=== PATIENT | male | born 1955 | race Caucasian/White ===

== ENCOUNTER 2021-07-11 10:53 | Inpatient (IN) | payer MEDICARE, OTHER ==
[2021-07-11 12:03] LABS: #Lymphocytes 0.6 thou/uL (1.20-3.40); #Monocytes 0.2 thou/uL (0.11-0.59); #Neutrophils 5.3 thou/uL (1.40-6.50); %Eosinophils 0.1 % (0.0-10.0); %Lymphocytes 9.2 % (21.0-51.0); %Neutrophils 87.6 % (42.0-75.0); Hemoglobin 12.3 g/dL (14.0-18.0); Mean Corpuscular HGB CONC 33.7 g/dL (32.0-36.0); Mean Corpuscular Hemoglobin 30.3 pg (27.0-31.0); Mean Corpuscular Volume 89.8 fL (78.0-98.0); Mean Platelet Volume 8.4 fL (7.4-10.4); Platelet Count 129 thou/uL (130-400); RBC Distribution Width 12.8 % (11.5-14.5); Red Blood Cell (RBC) Count 4.06 mill/uL (4.70-6.10)
[2021-07-11 12:24] LABS: ALT (SGPT) 26 U/L (8-55); AST (SGOT) 40 U/L (5-34); Albumin 3.3 g/dL (3.4-4.8); Alkaline Phosphatase 87 U/L (40-110); Anion Gap 16 mmol/L (10-20); BUN (Urea Nitrogen) 42 mg/dL (8.4-25.7); Calc. Creatinine Clearance 0 mL/min (70-130); Calcium 8.3 mg/dL (7.8-10.44); Carbon Dioxide 18 mmol/L (23-31); Chloride 105 mmol/L (98-107); Globulin 2.1 g/dL (2.4-3.5); Glucose 179 mg/dL (80-115); Potassium 4.8 mmol/L (3.5-5.1); Protein, Total 5.4 g/dL (5.8-8.1); Sodium 134 mmol/L (136-145)
[2021-07-11 12:46] LABS: CKMB 0.4 ng/mL (0-6.6)
[2021-07-11] MEDS ORDERED: Acetaminophen 500 MG TAB ONE (18:21)
[2021-07-11 19:27] LABS: Anion Gap 12 mmol/L (10-20); BUN (Urea Nitrogen) 39 mg/dL (8.4-25.7); Calc. Creatinine Clearance 0 mL/min (70-130); Calcium 8.2 mg/dL (7.8-10.44); Carbon Dioxide 17 mmol/L (23-31); Chloride 109 mmol/L (98-107); Glucose 156 mg/dL (80-115); Potassium 4.4 mmol/L (3.5-5.1); Sodium 134 mmol/L (136-145)
[2021-07-11 19:34] LABS: Troponin I 0.062 ng/mL (< 0.028)
[2021-07-12 09:14] LABS: #Lymphocytes 0.5 thou/uL (1.20-3.40); #Monocytes 0.2 thou/uL (0.11-0.59); #Neutrophils 6.1 thou/uL (1.40-6.50); %Eosinophils 0.1 % (0.0-10.0); %Lymphocytes 7.8 % (21.0-51.0); %Monocytes 2.4 % (0.0-10.0); %Neutrophils 89.6 % (42.0-75.0); Mean Corpuscular HGB CONC 32.3 g/dL (32.0-36.0); Mean Corpuscular Hemoglobin 29.2 pg (27.0-31.0); Mean Corpuscular Volume 90.2 fL (78.0-98.0); Mean Platelet Volume 8.6 fL (7.4-10.4); Platelet Count 138 thou/uL (130-400); Red Blood Cell (RBC) Count 4.12 mill/uL (4.70-6.10); White Blood Cell (WBC) Count 6.8 thou/uL (4.8-10.8)
[2021-07-12 09:31] LABS: ALT (SGPT) 21 U/L (8-55); AST (SGOT) 44 U/L (5-34); Albumin 2.9 g/dL (3.4-4.8); Alkaline Phosphatase 73 U/L (40-110); Anion Gap 12 mmol/L (10-20); BUN (Urea Nitrogen) 41 mg/dL (8.4-25.7); Bilirubin, Total 0.9 mg/dL (0.2-1.2); Calc. Creatinine Clearance 0 mL/min (70-130); Calcium 8.4 mg/dL (7.8-10.44); Carbon Dioxide 16 mmol/L (23-31); Chloride 110 mmol/L (98-107); Globulin 2.6 g/dL (2.4-3.5); Glucose 112 mg/dL (80-115); Potassium 4.2 mmol/L (3.5-5.1); Protein, Total 5.5 g/dL (5.8-8.1); Sodium 134 mmol/L (136-145)
[2021-07-12 09:33] LABS: Troponin I 0.046 ng/mL (< 0.028)
[2021-07-12] MEDS ORDERED: Loperamide HCl 2 MG CAP ONE (09:52)
[2021-07-12] MEDS ORDERED: Ondansetron PF 4 MG/2 ML Vial IVP PRN (10:46)
[2021-07-12] MEDS ORDERED: Bisacodyl 10 MG SUPP PR PRN (10:46)
[2021-07-12] MEDS ORDERED: Guaifenesin DM 100-10/5 ML UDCUP PO PRN (10:46)
[2021-07-12] MEDS ORDERED: Calcium Carbonate 500 MG ChewTAB PO PRN (10:46)
[2021-07-12 10:59] LABS: SARS-CoV-2 NAA Rapid Test DETECTED (NotDetected)
[2021-07-12] MEDS ORDERED: Albuterol 200 PUFF (6.7GM INHALER) INH PRN (12:59)
[2021-07-12] MEDS ORDERED: methylPREDNISolone Sod Succ 40 MG VIAL ONE (14:43)
[2021-07-12] MEDS ORDERED: Cefepime 1 GM VIAL ONE (14:43)
[2021-07-12] MEDS: methylPREDNISolone Sod Succ 40 MG VIAL IVP SCH ×2 (14:49→20:24)
[2021-07-12] MEDS: Sodium Bicarbonate 150 MEQ in Dextrose 5% in Water 1,000 ML IV SCH ×2 (14:52→20:26)
[2021-07-12] MEDS: Cefepime 1 GM in Sodium Chloride 0.9% 100 ML IVPB SCH (14:52)
[2021-07-12] MEDS: Carvedilol 6.25 MG TAB PO SCH (17:35)
[2021-07-12] MEDS: Calcium Acetate 667 MG CAP PO SCH (17:36)
[2021-07-12 17:47] LABS: Creatinine, Urine 76.69 mg/dL (63-166)
[2021-07-12] MEDS: Atorvastatin Calcium 20 MG TAB PO SCH (20:24)
[2021-07-12] MEDS: Tacrolimus 1 MG CAP PO SCH (20:24)
[2021-07-13] MEDS: Sodium Bicarbonate 150 MEQ in Dextrose 5% in Water 1,000 ML IV SCH ×2 (02:38→14:41)
[2021-07-13] MEDS ORDERED: hydrALAZINE 20 MG/ML VIAL SLOW IVP SCH (03:45)
[2021-07-13 05:45] LABS: #Lymphocytes 0.4 thou/uL (1.20-3.40); #Monocytes 0.2 thou/uL (0.11-0.59); #Neutrophils 4.8 thou/uL (1.40-6.50); %Eosinophils 0.1 % (0.0-10.0); %Monocytes 3.8 % (0.0-10.0); %Neutrophils 88.1 % (42.0-75.0); Hemoglobin 11.8 g/dL (14.0-18.0); Mean Corpuscular Hemoglobin 30.1 pg (27.0-31.0); Mean Corpuscular Volume 88.6 fL (78.0-98.0); Mean Platelet Volume 8.5 fL (7.4-10.4); Platelet Count 156 thou/uL (130-400); RBC Distribution Width 12.7 % (11.5-14.5); Red Blood Cell (RBC) Count 3.92 mill/uL (4.70-6.10); White Blood Cell (WBC) Count 5.4 thou/uL (4.8-10.8)
[2021-07-13] MEDS: methylPREDNISolone Sod Succ 40 MG VIAL IVP SCH ×2 (05:57→13:18)
[2021-07-13 06:00] LABS: Albumin 2.7 g/dL (3.4-4.8); Anion Gap 17 mmol/L (10-20); BUN (Urea Nitrogen) 45 mg/dL (8.4-25.7); BUN/Creatinine Ratio 20.64; Calc. Creatinine Clearance 37 mL/min (70-130); Calcium 8.1 mg/dL (7.8-10.44); Carbon Dioxide 16 mmol/L (23-31); Chloride 105 mmol/L (98-107); Glucose 234 mg/dL (80-115); Magnesium 1.4 mg/dL (1.6-2.6); Phosphorus 2.9 mg/dL (2.3-4.7); Potassium 3.9 mmol/L (3.5-5.1); Sodium 134 mmol/L (136-145)
[2021-07-13] MEDS: Tacrolimus 1 MG CAP PO SCH ×2 (09:18→19:52)
[2021-07-13] MEDS: Enoxaparin Sodium 30 MG/0.3 ML SYRINGE SC SCH (09:18)
[2021-07-13] MEDS: Amlodipine 10 MG TAB PO SCH (09:18)
[2021-07-13] MEDS: Ascorbic Acid 500 mg Chewable Tablet PO SCH (09:19)
[2021-07-13] MEDS: Calcium Acetate 667 MG CAP PO SCH ×3 (09:19→16:53)
[2021-07-13] MEDS: Carvedilol 6.25 MG TAB PO SCH ×2 (09:19→16:53)
[2021-07-13] MEDS: Aspirin Chewable 81 MG TAB PO SCH (09:20)
[2021-07-13] MEDS: Cefepime 1 GM in Sodium Chloride 0.9% 100 ML IVPB SCH (13:18)
[2021-07-13] MEDS: Atorvastatin Calcium 20 MG TAB PO SCH (19:52)
[2021-07-14] MEDS: Sodium Bicarbonate 150 MEQ in Dextrose 5% in Water 1,000 ML IV SCH (00:35)
[2021-07-14] MEDS: Calcium Acetate 667 MG CAP PO SCH ×2 (09:12→13:19)
[2021-07-14] MEDS: Carvedilol 6.25 MG TAB PO SCH ×2 (09:12→16:48)
[2021-07-14] MEDS: predniSONE 20 MG TAB PO SCH (09:12)
[2021-07-14] MEDS: Amlodipine 10 MG TAB PO SCH (09:13)
[2021-07-14] MEDS: Aspirin Chewable 81 MG TAB PO SCH (09:13)
[2021-07-14] MEDS: Ascorbic Acid 500 mg Chewable Tablet PO SCH (09:13)
[2021-07-14] MEDS: Tacrolimus 1 MG CAP PO SCH ×2 (09:13→20:19)
[2021-07-14] MEDS: Enoxaparin Sodium 30 MG/0.3 ML SYRINGE SC SCH (09:13)
[2021-07-14 11:39] LABS: #Lymphocytes 0.4 thou/uL (1.20-3.40); #Monocytes 0.5 thou/uL (0.11-0.59); %Basophils 0.1 % (0.0-1.0); %Eosinophils 0.1 % (0.0-10.0); %Lymphocytes 4.5 % (21.0-51.0); %Monocytes 5.1 % (0.0-10.0); %Neutrophils 90.3 % (42.0-75.0); Hemoglobin 13.1 g/dL (14.0-18.0); Mean Corpuscular Hemoglobin 29.3 pg (27.0-31.0); Mean Corpuscular Volume 88.8 fL (78.0-98.0); Mean Platelet Volume 8.2 fL (7.4-10.4); Platelet Count 211 thou/uL (130-400); RBC Distribution Width 12.7 % (11.5-14.5); Red Blood Cell (RBC) Count 4.48 mill/uL (4.70-6.10); White Blood Cell (WBC) Count 8.9 thou/uL (4.8-10.8)
[2021-07-14 11:57] LABS: Albumin 2.9 g/dL (3.4-4.8); Anion Gap 15 mmol/L (10-20); BUN (Urea Nitrogen) 48 mg/dL (8.4-25.7); BUN/Creatinine Ratio 23.65; Calc. Creatinine Clearance 40 mL/min (70-130); Calcium 8.7 mg/dL (7.8-10.44); Carbon Dioxide 26 mmol/L (23-31); Chloride 101 mmol/L (98-107); Glucose 316 mg/dL (80-115); Phosphorus 2.7 mg/dL (2.3-4.7); Potassium 3.9 mmol/L (3.5-5.1); Sodium 138 mmol/L (136-145)
[2021-07-14 11:58] LABS: Anion Gap 16 mmol/L (10-20); BUN (Urea Nitrogen) 47 mg/dL (8.4-25.7); Calc. Creatinine Clearance 40 mL/min (70-130); Calcium 8.7 mg/dL (7.8-10.44); Carbon Dioxide 25 mmol/L (23-31); Chloride 100 mmol/L (98-107); Glucose 315 mg/dL (80-115); Potassium 3.9 mmol/L (3.5-5.1); Sodium 137 mmol/L (136-145)
[2021-07-14] MEDS: Dextrose 5 %-0.45 % NaCl 1,000 ML IV SCH (12:38)
[2021-07-14] MEDS: Cefepime 1 GM in Sodium Chloride 0.9% 100 ML IVPB SCH (14:22)
[2021-07-14] MEDS: Atorvastatin Calcium 20 MG TAB PO SCH (20:19)
[2021-07-15] MEDS: Dextrose 5 %-0.45 % NaCl 1,000 ML IV SCH (01:47)
[2021-07-15 03:54] LABS: Actual Bicarbonate (HCO3a) 25.4 mEq/L (22-28); Base Excess (BEa) 3.4 mEq/L (-2.0 to +3.0); CO2 Tension 30.6 mmHg (35.0-45.0); Calcium, Ionized (arterial) 1.12 mmol/L (1.12-1.30); Carboxyhemoglobin (COHb) 0.5 gm% (0.0-3.0); Hemoglobin (Hb) 12.9 g/dL (14.0-18.0); pH, Arterial 7.54 (7.35-7.45)
[2021-07-15 04:16] LABS: O2 Tension (PaO2), arterial 54.3 mmHg (> 80.0)
[2021-07-15 04:17] LABS: Puncture Site RRA
[2021-07-15 05:08] LABS: #Lymphocytes 0.5 thou/uL (1.20-3.40); #Monocytes 0.3 thou/uL (0.11-0.59); #Neutrophils 7.5 thou/uL (1.40-6.50); %Eosinophils 0.2 % (0.0-10.0); %Lymphocytes 5.6 % (21.0-51.0); %Neutrophils 91.1 % (42.0-75.0); Mean Corpuscular HGB CONC 33.3 g/dL (32.0-36.0); Mean Corpuscular Hemoglobin 29.3 pg (27.0-31.0); Mean Corpuscular Volume 87.9 fL (78.0-98.0); Mean Platelet Volume 8.3 fL (7.4-10.4); Platelet Count 199 thou/uL (130-400); RBC Distribution Width 12.6 % (11.5-14.5); Red Blood Cell (RBC) Count 4.43 mill/uL (4.70-6.10); White Blood Cell (WBC) Count 8.2 thou/uL (4.8-10.8)
[2021-07-15 05:29] LABS: Anion Gap 14 mmol/L (10-20); BUN (Urea Nitrogen) 47 mg/dL (8.4-25.7); Calc. Creatinine Clearance 47 mL/min (70-130); Calcium 8.6 mg/dL (7.8-10.44); Carbon Dioxide 23 mmol/L (23-31); Chloride 104 mmol/L (98-107); Glucose 196 mg/dL (80-115); Sodium 137 mmol/L (136-145)
[2021-07-15] MEDS ORDERED: Furosemide 40 MG/4 ML VIAL SLOW IVP SCH (06:45)
[2021-07-15] MEDS: Amlodipine 10 MG TAB PO SCH ×2 (08:25→08:26)
[2021-07-15] MEDS: predniSONE 20 MG TAB PO SCH (08:25)
[2021-07-15] MEDS: Enoxaparin Sodium 30 MG/0.3 ML SYRINGE SC SCH (08:26)
[2021-07-15] MEDS: Tacrolimus 1 MG CAP PO SCH ×2 (08:26→20:42)
[2021-07-15] MEDS: Ascorbic Acid 500 mg Chewable Tablet PO SCH (08:26)
[2021-07-15] MEDS: Aspirin Chewable 81 MG TAB PO SCH (08:26)
[2021-07-15] MEDS: Carvedilol 6.25 MG TAB PO SCH ×2 (08:28→17:03)
[2021-07-15] MEDS ORDERED: predniSONE 20 MG TAB PO SCH (12:30)
[2021-07-15] MEDS: Acetaminophen 325 MG TAB PO PRN (17:02)
[2021-07-15] MEDS: Cefepime 1 GM in Sodium Chloride 0.9% 100 ML IVPB SCH (17:03)
[2021-07-15] MEDS: Mometasone 200 MCG/Formoterol 5 MCG 120 PUFF INHALER INH SCH (20:41)
[2021-07-15] MEDS: Atorvastatin Calcium 20 MG TAB PO SCH (20:42)
[2021-07-15] MEDS: BARICITINIB 2 MG TAB PO SCH (20:42)
[2021-07-16 04:07] LABS: #Lymphocytes 0.6 thou/uL (1.20-3.40); #Monocytes 0.1 thou/uL (0.11-0.59); #Neutrophils 6.5 thou/uL (1.40-6.50); %Eosinophils 0.2 % (0.0-10.0); %Lymphocytes 7.6 % (21.0-51.0); %Monocytes 1.6 % (0.0-10.0); %Neutrophils 90.6 % (42.0-75.0); Hemoglobin 12.3 g/dL (14.0-18.0); Mean Corpuscular HGB CONC 33.5 g/dL (32.0-36.0); Mean Corpuscular Hemoglobin 29.7 pg (27.0-31.0); Mean Corpuscular Volume 88.8 fL (78.0-98.0); Mean Platelet Volume 8.7 fL (7.4-10.4); Platelet Count 162 thou/uL (130-400); RBC Distribution Width 12.4 % (11.5-14.5); Red Blood Cell (RBC) Count 4.13 mill/uL (4.70-6.10); White Blood Cell (WBC) Count 7.2 thou/uL (4.8-10.8)
[2021-07-16 04:21] LABS: ALT (SGPT) 26 U/L (8-55); AST (SGOT) 27 U/L (5-34); Albumin 2.9 g/dL (3.4-4.8); Alkaline Phosphatase 89 U/L (40-110); Anion Gap 13 mmol/L (10-20); BUN (Urea Nitrogen) 50 mg/dL (8.4-25.7); Bilirubin, Direct 0.7 mg/dL (0.1-0.3); Bilirubin, Total 1.6 mg/dL (0.2-1.2); Calc. Creatinine Clearance 42 mL/min (70-130); Calcium 8.4 mg/dL (7.8-10.44); Carbon Dioxide 27 mmol/L (23-31); Chloride 102 mmol/L (98-107); Glucose 251 mg/dL (80-115); Magnesium 1.7 mg/dL (1.6-2.6); Protein, Total 5.8 g/dL (5.8-8.1); Sodium 138 mmol/L (136-145)
[2021-07-16] MEDS: Mometasone 200 MCG/Formoterol 5 MCG 120 PUFF INHALER INH SCH ×2 (05:57→17:51)
[2021-07-16] MEDS: Tacrolimus 1 MG CAP PO SCH ×2 (07:56→21:16)
[2021-07-16] MEDS: Amlodipine 10 MG TAB PO SCH (07:57)
[2021-07-16] MEDS: Carvedilol 6.25 MG TAB PO SCH ×2 (07:57→17:51)
[2021-07-16] MEDS: predniSONE 20 MG TAB PO SCH (07:57)
[2021-07-16] MEDS: Aspirin Chewable 81 MG TAB PO SCH (07:57)
[2021-07-16] MEDS: Ascorbic Acid 500 mg Chewable Tablet PO SCH (07:57)
[2021-07-16] MEDS: Enoxaparin Sodium 30 MG/0.3 ML SYRINGE SC SCH ×2 (07:58→21:17)
[2021-07-16] MEDS: Cefepime 2 GM in Sodium Chloride 0.9% 100 ML IVPB SCH ×2 (12:01→23:03)
[2021-07-16 20:12] LABS: Tacrolimus 17.9 ng/mL (2.0-20.0)
[2021-07-16] MEDS: BARICITINIB 2 MG TAB PO SCH (21:16)
[2021-07-16] MEDS: Atorvastatin Calcium 20 MG TAB PO SCH (21:17)
[2021-07-16] MEDS ORDERED: Sodium Chloride 0.65% Nasal 44 ML BOT EA NARE PRN (21:51)
[2021-07-17 04:47] LABS: Anion Gap 15 mmol/L (10-20); BUN (Urea Nitrogen) 54 mg/dL (8.4-25.7); Calc. Creatinine Clearance 38 mL/min (70-130); Calcium 8.4 mg/dL (7.8-10.44); Carbon Dioxide 20 mmol/L (23-31); Chloride 105 mmol/L (98-107); Glucose 539 mg/dL (80-115); Potassium 4.6 mmol/L (3.5-5.1); Sodium 135 mmol/L (136-145)
[2021-07-17] MEDS ORDERED: HumaLOG 300 UNITS/3 ML VIAL SC PRN (06:00)
[2021-07-17] MEDS ORDERED: Dextrose 5% in Water 1,000 ML IV PRN (06:00)
[2021-07-17] MEDS ORDERED: Dextrose 50% Abboject 50 ML SYRINGE SLOW IVP PRN (06:00)
[2021-07-17] MEDS: Mometasone 200 MCG/Formoterol 5 MCG 120 PUFF INHALER INH SCH ×2 (06:11→18:51)
[2021-07-17 06:26] LABS: Hemoglobin A1c 6.8 % (4.0-6.0)
[2021-07-17] MEDS ORDERED: Lantus 1000 UNITS/10 ML VIAL SC SCH (07:45)
[2021-07-17] MEDS: Carvedilol 6.25 MG TAB PO SCH ×2 (07:56→18:03)
[2021-07-17] MEDS: Tacrolimus 1 MG CAP PO SCH ×2 (07:56→22:15)
[2021-07-17] MEDS: predniSONE 20 MG TAB PO SCH (07:57)
[2021-07-17] MEDS: Ascorbic Acid 500 mg Chewable Tablet PO SCH (07:57)
[2021-07-17] MEDS: Amlodipine 10 MG TAB PO SCH (07:57)
[2021-07-17] MEDS: Aspirin Chewable 81 MG TAB PO SCH (07:57)
[2021-07-17] MEDS: Enoxaparin Sodium 30 MG/0.3 ML SYRINGE SC SCH ×2 (07:58→22:15)
[2021-07-17] MEDS: Cefepime 2 GM in Sodium Chloride 0.9% 100 ML IVPB SCH ×2 (11:39→23:16)
[2021-07-17] MEDS: HumaLOG 300 UNITS/3 ML VIAL SC PRN ×2 (18:03→22:17)
[2021-07-17] MEDS: Atorvastatin Calcium 20 MG TAB PO SCH (22:15)
[2021-07-17] MEDS: BARICITINIB 2 MG TAB PO SCH (22:15)
[2021-07-18] MEDS: Mometasone 200 MCG/Formoterol 5 MCG 120 PUFF INHALER INH SCH ×2 (06:12→17:52)
[2021-07-18] MEDS: HumaLOG 300 UNITS/3 ML VIAL SC PRN (06:13)
[2021-07-18] MEDS: Aspirin Chewable 81 MG TAB PO SCH (07:31)
[2021-07-18] MEDS: predniSONE 20 MG TAB PO SCH (07:31)
[2021-07-18] MEDS: Ascorbic Acid 500 mg Chewable Tablet PO SCH (07:31)
[2021-07-18] MEDS: Tacrolimus 1 MG CAP PO SCH ×2 (07:31→21:07)
[2021-07-18] MEDS: Amlodipine 10 MG TAB PO SCH (07:31)
[2021-07-18] MEDS: Enoxaparin Sodium 30 MG/0.3 ML SYRINGE SC SCH ×2 (07:32→21:07)
[2021-07-18] MEDS: Lantus 1000 UNITS/10 ML VIAL SC SCH (07:32)
[2021-07-18] MEDS: Carvedilol 6.25 MG TAB PO SCH ×2 (07:47→13:11)
[2021-07-18 08:49] LABS: #Eosinphils 0.2 thou/uL (0.0-0.7); #Lymphocytes 0.8 thou/uL (1.20-3.40); #Monocytes 0.2 thou/uL (0.11-0.59); #Neutrophils 10.2 thou/uL (1.40-6.50); %Basophils 0.1 % (0.0-1.0); %Eosinophils 1.6 % (0.0-10.0); %Lymphocytes 6.8 % (21.0-51.0); %Monocytes 1.9 % (0.0-10.0); %Neutrophils 89.7 % (42.0-75.0); Hemoglobin 13.6 g/dL (14.0-18.0); Mean Corpuscular HGB CONC 32.2 g/dL (32.0-36.0); Mean Corpuscular Volume 89.9 fL (78.0-98.0); Mean Platelet Volume 8.7 fL (7.4-10.4); Platelet Count 219 thou/uL (130-400); RBC Distribution Width 12.6 % (11.5-14.5); Red Blood Cell (RBC) Count 4.71 mill/uL (4.70-6.10); White Blood Cell (WBC) Count 11.4 thou/uL (4.8-10.8)
[2021-07-18 09:09] LABS: Anion Gap 14 mmol/L (10-20); BUN (Urea Nitrogen) 58 mg/dL (8.4-25.7); Calc. Creatinine Clearance 45 mL/min (70-130); Calcium 9.2 mg/dL (7.8-10.44); Carbon Dioxide 20 mmol/L (23-31); Chloride 110 mmol/L (98-107); Glucose 137 mg/dL (80-115); Sodium 140 mmol/L (136-145)
[2021-07-18] MEDS: Cefepime 2 GM in Sodium Chloride 0.9% 100 ML IVPB SCH ×2 (13:10→22:32)
[2021-07-18] MEDS: Atorvastatin Calcium 20 MG TAB PO SCH (21:07)
[2021-07-18] MEDS: BARICITINIB 2 MG TAB PO SCH (21:07)
[2021-07-18 22:31] LABS: #Eosinphils 0.2 thou/uL (0.0-0.7); #Lymphocytes 0.7 thou/uL (1.20-3.40); #Monocytes 0.2 thou/uL (0.11-0.59); #Neutrophils 11.6 thou/uL (1.40-6.50); %Eosinophils 1.8 % (0.0-10.0); %Lymphocytes 5.2 % (21.0-51.0); %Monocytes 1.8 % (0.0-10.0); %Neutrophils 91.2 % (42.0-75.0); Hemoglobin 14.1 g/dL (14.0-18.0); Mean Corpuscular HGB CONC 33.5 g/dL (32.0-36.0); Mean Corpuscular Hemoglobin 29.9 pg (27.0-31.0); Mean Corpuscular Volume 89.3 fL (78.0-98.0); Mean Platelet Volume 8.1 fL (7.4-10.4); Platelet Count 237 thou/uL (130-400); RBC Distribution Width 12.5 % (11.5-14.5); Red Blood Cell (RBC) Count 4.71 mill/uL (4.70-6.10); White Blood Cell (WBC) Count 12.7 thou/uL (4.8-10.8)
[2021-07-18 22:54] LABS: ALT (SGPT) 27 U/L (8-55); AST (SGOT) 31 U/L (5-34); Alkaline Phosphatase 98 U/L (40-110); Anion Gap 15 mmol/L (10-20); BUN (Urea Nitrogen) 51 mg/dL (8.4-25.7); Bilirubin, Total 1.5 mg/dL (0.2-1.2); Calc. Creatinine Clearance 50 mL/min (70-130); Carbon Dioxide 18 mmol/L (23-31); Chloride 109 mmol/L (98-107); Globulin 3.7 g/dL (2.4-3.5); Glucose 104 mg/dL (80-115); Potassium 4.6 mmol/L (3.5-5.1); Protein, Total 6.7 g/dL (5.8-8.1); Sodium 137 mmol/L (136-145)
[2021-07-18 23:14] LABS: Bacteria/HPF None Seen HPF (None Seen); Bilirubin Negative (Negative); Blood, Urine 3+ (Negative); Clarity Clear (Clear); Glucose, Urine (Dipstick) 300 mg/dL (Negative); Ketone, Urine Negative (Negative); Leukocyte Negative Leu/uL (Negative); Nitrite Negative (Negative); Protein, Urine (Dipstick) 100 mg/dL (Neg-Trace); RBC/HPF Greater than 50 HPF (0-3); Specific Gravity, Urine 1.023 (1.002-1.036); Squamous Epithelial None Seen HPF (0-3); Urobilinogen Normal mg/dL (Less than 2)
[2021-07-18 23:17] LABS: Urine Culture Reflex Yes Yes
[2021-07-19] MEDS: Acetaminophen 325 MG TAB PO PRN (06:00)
[2021-07-19] MEDS: Mometasone 200 MCG/Formoterol 5 MCG 120 PUFF INHALER INH SCH ×2 (06:01→16:59)
[2021-07-19 06:03] LABS: ALT (SGPT) 27 U/L (8-55); AST (SGOT) 26 U/L (5-34); Alkaline Phosphatase 89 U/L (40-110); Bilirubin, Direct 0.7 mg/dL (0.1-0.3); Bilirubin, Total 1.6 mg/dL (0.2-1.2); Protein, Total 6.5 g/dL (5.8-8.1)
[2021-07-19] MEDS: Ascorbic Acid 500 mg Chewable Tablet PO SCH (08:17)
[2021-07-19] MEDS: predniSONE 20 MG TAB PO SCH (08:17)
[2021-07-19] MEDS: Carvedilol 6.25 MG TAB PO SCH ×2 (08:17→16:59)
[2021-07-19] MEDS: Aspirin Chewable 81 MG TAB PO SCH (08:17)
[2021-07-19] MEDS: Tacrolimus 1 MG CAP PO SCH ×2 (08:18→19:56)
[2021-07-19] MEDS: Enoxaparin Sodium 30 MG/0.3 ML SYRINGE SC SCH ×2 (08:18→19:57)
[2021-07-19] MEDS: Lantus 1000 UNITS/10 ML VIAL SC SCH (11:43)
[2021-07-19] MEDS: Cefepime 2 GM in Sodium Chloride 0.9% 100 ML IVPB SCH ×2 (11:43→23:25)
[2021-07-19] MEDS: HumaLOG 300 UNITS/3 ML VIAL SC PRN ×2 (17:00→19:58)
[2021-07-19] MEDS ORDERED: hydrALAZINE 20 MG/ML VIAL SLOW IVP PRN (17:46)
[2021-07-19] MEDS: BARICITINIB 2 MG TAB PO SCH (19:57)
[2021-07-19] MEDS: Atorvastatin Calcium 20 MG TAB PO SCH (19:57)
[2021-07-20 00:02] LABS: SARS-CoV-2 PCR by NAA DETECTED (NotDetected)
[2021-07-20 05:07] LABS: #Eosinphils 0.1 thou/uL (0.0-0.7); #Lymphocytes 0.7 thou/uL (1.20-3.40); #Monocytes 0.2 thou/uL (0.11-0.59); #Neutrophils 6.3 thou/uL (1.40-6.50); %Basophils 0.1 % (0.0-1.0); %Eosinophils 1.2 % (0.0-10.0); %Lymphocytes 9.1 % (21.0-51.0); %Monocytes 3.1 % (0.0-10.0); %Neutrophils 86.7 % (42.0-75.0); Hemoglobin 13.1 g/dL (14.0-18.0); Mean Corpuscular HGB CONC 32.9 g/dL (32.0-36.0); Mean Corpuscular Hemoglobin 29.1 pg (27.0-31.0); Mean Corpuscular Volume 88.4 fL (78.0-98.0); Mean Platelet Volume 8.5 fL (7.4-10.4); Platelet Count 194 thou/uL (130-400); RBC Distribution Width 12.5 % (11.5-14.5); Red Blood Cell (RBC) Count 4.52 mill/uL (4.70-6.10); White Blood Cell (WBC) Count 7.2 thou/uL (4.8-10.8)
[2021-07-20 05:29] LABS: Anion Gap 12 mmol/L (10-20); BUN (Urea Nitrogen) 58 mg/dL (8.4-25.7); Calc. Creatinine Clearance 48 mL/min (70-130); Calcium 8.7 mg/dL (7.8-10.44); Carbon Dioxide 17 mmol/L (23-31); Chloride 115 mmol/L (98-107); Glucose 105 mg/dL (80-115); Potassium 4.5 mmol/L (3.5-5.1); Sodium 139 mmol/L (136-145)
[2021-07-20] MEDS: Mometasone 200 MCG/Formoterol 5 MCG 120 PUFF INHALER INH SCH ×2 (06:12→17:27)
[2021-07-20] MEDS: Enoxaparin Sodium 30 MG/0.3 ML SYRINGE SC SCH ×2 (08:11→21:10)
[2021-07-20] MEDS: Ascorbic Acid 500 mg Chewable Tablet PO SCH ×2 (08:11→08:12)
[2021-07-20] MEDS: predniSONE 20 MG TAB PO SCH (08:12)
[2021-07-20] MEDS: Aspirin Chewable 81 MG TAB PO SCH (08:12)
[2021-07-20] MEDS: Amlodipine 10 MG TAB PO SCH (08:12)
[2021-07-20] MEDS: Tacrolimus 1 MG CAP PO SCH ×2 (08:13→21:10)
[2021-07-20] MEDS: Lantus 1000 UNITS/10 ML VIAL SC SCH (12:16)
[2021-07-20] MEDS ORDERED: hydrOXYzine 25 MG TAB PO PRN (13:46)
[2021-07-20] MEDS ORDERED: Carvedilol 6.25 MG TAB PO SCH (17:00)
[2021-07-20] MEDS: HumaLOG 300 UNITS/3 ML VIAL SC PRN (17:27)
[2021-07-20] MEDS: BARICITINIB 2 MG TAB PO SCH (21:10)
[2021-07-20] MEDS: Atorvastatin Calcium 20 MG TAB PO SCH (21:10)
[2021-07-21 06:10] LABS: Anion Gap 15 mmol/L (10-20); BUN (Urea Nitrogen) 64 mg/dL (8.4-25.7); Calc. Creatinine Clearance 45 mL/min (70-130); Carbon Dioxide 15 mmol/L (23-31); Chloride 113 mmol/L (98-107); Glucose 123 mg/dL (80-115); Potassium 5.3 mmol/L (3.5-5.1); Sodium 138 mmol/L (136-145)
[2021-07-21] MEDS: Mometasone 200 MCG/Formoterol 5 MCG 120 PUFF INHALER INH SCH ×2 (06:19→17:53)
[2021-07-21] MEDS: Amlodipine 10 MG TAB PO SCH (07:44)
[2021-07-21] MEDS: Lantus 1000 UNITS/10 ML VIAL SC SCH (07:45)
[2021-07-21] MEDS: Aspirin Chewable 81 MG TAB PO SCH (07:45)
[2021-07-21] MEDS: Enoxaparin Sodium 30 MG/0.3 ML SYRINGE SC SCH ×2 (07:45→21:34)
[2021-07-21] MEDS: Tacrolimus 1 MG CAP PO SCH ×2 (07:45→21:34)
[2021-07-21] MEDS: Ascorbic Acid 500 mg Chewable Tablet PO SCH (07:47)
[2021-07-21] MEDS ORDERED: predniSONE 20 MG TAB PO SCH (08:00)
[2021-07-21 09:09] LABS: Anion Gap 13 mmol/L (10-20); BUN (Urea Nitrogen) 65 mg/dL (8.4-25.7); Calc. Creatinine Clearance 44 mL/min (70-130); Carbon Dioxide 17 mmol/L (23-31); Chloride 113 mmol/L (98-107); Glucose 129 mg/dL (80-115); Potassium 4.9 mmol/L (3.5-5.1); Sodium 138 mmol/L (136-145)
[2021-07-21 14:36] LABS: Tacrolimus 8.5 ng/mL (2.0-20.0)
[2021-07-21 16:16] LABS: Bilirubin Negative (Negative); Blood, Urine 3+ (Negative); Clarity Extra Turbid (Clear); Glucose, Urine (Dipstick) 500 mg/dL (Negative); Ketone, Urine Negative (Negative); Leukocyte Negative Leu/uL (Negative); Nitrite Negative (Negative); Protein, Urine (Dipstick) 70 mg/dL (Neg-Trace); RBC/HPF Greater than 50 HPF (0-3); Specific Gravity, Urine 1.025 (1.002-1.036); Squamous Epithelial None Seen HPF (0-3); Urobilinogen Normal mg/dL (Less than 2); pH, Urine 5.5 (5.0-9.0)
[2021-07-21 16:30] LABS: Bacteria/HPF 1+ HPF (None Seen); WBC/HPF 0-3 HPF (0-3)
[2021-07-21 16:31] LABS: Urine Culture Reflex Yes Yes
[2021-07-21] MEDS: HumaLOG 300 UNITS/3 ML VIAL SC PRN ×2 (17:55→21:35)
[2021-07-21] MEDS: Atorvastatin Calcium 20 MG TAB PO SCH (21:34)
[2021-07-21] MEDS: BARICITINIB 2 MG TAB PO SCH (21:34)
[2021-07-22 04:30] LABS: Anion Gap 11 mmol/L (10-20); BUN (Urea Nitrogen) 66 mg/dL (8.4-25.7); Calc. Creatinine Clearance 44 mL/min (70-130); Carbon Dioxide 18 mmol/L (23-31); Chloride 115 mmol/L (98-107); Glucose 79 mg/dL (80-115); Phosphorus 2.7 mg/dL (2.3-4.7); Potassium 4.9 mmol/L (3.5-5.1); Sodium 139 mmol/L (136-145)
[2021-07-22] MEDS: Mometasone 200 MCG/Formoterol 5 MCG 120 PUFF INHALER INH SCH ×2 (05:58→18:44)
[2021-07-22] MEDS ORDERED: predniSONE 20 MG TAB PO SCH (08:00)
[2021-07-22 08:26] LABS: ALT (SGPT) 28 U/L (8-55); AST (SGOT) 27 U/L (5-34); Albumin 3.1 g/dL (3.4-4.8); Alkaline Phosphatase 61 U/L (40-110); Bilirubin, Direct 0.4 mg/dL (0.1-0.3); Bilirubin, Total 1.1 mg/dL (0.2-1.2); Protein, Total 6.6 g/dL (5.8-8.1)
[2021-07-22 09:26] LABS: Hemoglobin 14.1 g/dL (14.0-18.0); Mean Corpuscular HGB CONC 32.5 g/dL (32.0-36.0); Mean Corpuscular Hemoglobin 29.8 pg (27.0-31.0); Mean Corpuscular Volume 91.7 fL (78.0-98.0); Mean Platelet Volume 8.3 fL (7.4-10.4); Platelet Count 215 thou/uL (130-400); RBC Distribution Width 12.6 % (11.5-14.5); Red Blood Cell (RBC) Count 4.74 mill/uL (4.70-6.10); White Blood Cell (WBC) Count 10.3 thou/uL (4.8-10.8)
[2021-07-22 09:38] LABS: INR-International Normal Ratio 1.2; Prothrombin Time 15.2 sec (12.0-14.7)
[2021-07-22 09:39] LABS: PTT 58.2 sec (22.9-36.1)
[2021-07-22 09:40] LABS: D-Dimer Test 2.56 *mcg/mL (0.27-0.43)
[2021-07-22 09:54] LABS: ALT (SGPT) 28 U/L (8-55); AST (SGOT) 30 U/L (5-34); Albumin 3.2 g/dL (3.4-4.8); Alkaline Phosphatase 75 U/L (40-110); Anion Gap 14 mmol/L (10-20); BUN (Urea Nitrogen) 65 mg/dL (8.4-25.7); Bilirubin, Total 1.1 mg/dL (0.2-1.2); Calc. Creatinine Clearance 44 mL/min (70-130); Calcium 9.2 mg/dL (7.8-10.44); Carbon Dioxide 14 mmol/L (23-31); Chloride 116 mmol/L (98-107); Globulin 3.4 g/dL (2.4-3.5); Glucose 98 mg/dL (80-115); Phosphorus 2.8 mg/dL (2.3-4.7); Potassium 5.3 mmol/L (3.5-5.1); Protein, Total 6.6 g/dL (5.8-8.1); Sodium 139 mmol/L (136-145)
[2021-07-22] MEDS: Tacrolimus 1 MG CAP PO SCH ×2 (10:46→20:20)
[2021-07-22] MEDS: Pantoprazole 40 MG VIAL IVP SCH ×2 (10:46→20:20)
[2021-07-22] MEDS: Ascorbic Acid 500 mg Chewable Tablet PO SCH (11:59)
[2021-07-22] MEDS: Lantus 1000 UNITS/10 ML VIAL SC SCH (11:59)
[2021-07-22] MEDS ORDERED: Polyethylene Glycol 3350 17 GM Packet PO SCH (13:30)
[2021-07-22 13:39] LABS: Anion Gap 19 mmol/L (10-20); BUN (Urea Nitrogen) 63 mg/dL (8.4-25.7); Calc. Creatinine Clearance 45 mL/min (70-130); Calcium 9.2 mg/dL (7.8-10.44); Carbon Dioxide 11 mmol/L (23-31); Chloride 115 mmol/L (98-107); Glucose 68 mg/dL (80-115); Potassium 5.5 mmol/L (3.5-5.1); Sodium 139 mmol/L (136-145)
[2021-07-22] MEDS: Mycophenolate ER 180 MG TAB PO SCH (15:09)
[2021-07-22 17:15] LABS: Hemoglobin 13.6 g/dL (14.0-18.0)
[2021-07-22 17:49] LABS: Anion Gap 14 mmol/L (10-20); BUN (Urea Nitrogen) 60 mg/dL (8.4-25.7); Calc. Creatinine Clearance 43 mL/min (70-130); Calcium 9.4 mg/dL (7.8-10.44); Carbon Dioxide 13 mmol/L (23-31); Chloride 116 mmol/L (98-107); Glucose 159 mg/dL (80-115); Potassium 5.1 mmol/L (3.5-5.1); Sodium 138 mmol/L (136-145)
[2021-07-22] MEDS: Sodium Bicarbonate Tab 325 MG TAB PO SCH (20:20)
[2021-07-22] MEDS: Atorvastatin Calcium 20 MG TAB PO SCH (20:20)
[2021-07-22] MEDS: Polyethylene Glycol 3350 17 GM Packet PO SCH (20:20)
[2021-07-22 23:02] LABS: Hemoglobin 13.9 g/dL (14.0-18.0)
[2021-07-22 23:21] LABS: Anion Gap 16 mmol/L (10-20); BUN (Urea Nitrogen) 58 mg/dL (8.4-25.7); Calc. Creatinine Clearance 44 mL/min (70-130); Carbon Dioxide 14 mmol/L (23-31); Chloride 117 mmol/L (98-107); Glucose 135 mg/dL (80-115); Potassium 4.7 mmol/L (3.5-5.1); Sodium 142 mmol/L (136-145)
[2021-07-23 05:18] LABS: Anion Gap 14 mmol/L (10-20); BUN (Urea Nitrogen) 55 mg/dL (8.4-25.7); Calc. Creatinine Clearance 46 mL/min (70-130); Calcium 8.7 mg/dL (7.8-10.44); Carbon Dioxide 16 mmol/L (23-31); Chloride 113 mmol/L (98-107); Glucose 109 mg/dL (80-115); Magnesium 1.8 mg/dL (1.6-2.6); Phosphorus 2.9 mg/dL (2.3-4.7); Potassium 4.3 mmol/L (3.5-5.1); Sodium 139 mmol/L (136-145)
[2021-07-23] MEDS: Mometasone 200 MCG/Formoterol 5 MCG 120 PUFF INHALER INH SCH ×2 (05:47→17:26)
[2021-07-23] MEDS: Sodium Bicarbonate Tab 325 MG TAB PO SCH ×3 (08:06→20:25)
[2021-07-23] MEDS: Tacrolimus 1 MG CAP PO SCH ×2 (08:06→20:25)
[2021-07-23] MEDS: Amlodipine 10 MG TAB PO SCH (08:06)
[2021-07-23] MEDS: Mycophenolate ER 180 MG TAB PO SCH ×2 (08:06→15:17)
[2021-07-23] MEDS: Ferrous Sulfate 325 MG TAB PO SCH (08:07)
[2021-07-23] MEDS: Magnesium Oxide 250 MG TAB PO SCH (08:07)
[2021-07-23] MEDS: Ascorbic Acid 500 mg Chewable Tablet PO SCH (08:07)
[2021-07-23] MEDS: Pantoprazole 40 MG VIAL IVP SCH ×2 (08:07→20:25)
[2021-07-23] MEDS: Polyethylene Glycol 3350 17 GM Packet PO SCH ×2 (08:08→20:25)
[2021-07-23] MEDS: Lantus 1000 UNITS/10 ML VIAL SC SCH (08:09)
[2021-07-23] MEDS ORDERED: Magnesium 2 GM/50 ML 2 GM in Premix Bag 1 BAG IVPB SCH (10:00)
[2021-07-23 16:15] LABS: Tacrolimus 5.5 ng/mL (2.0-20.0)
[2021-07-23] MEDS: HumaLOG 300 UNITS/3 ML VIAL SC PRN (17:27)
[2021-07-23] MEDS: Atorvastatin Calcium 20 MG TAB PO SCH (20:25)
[2021-07-24 06:31] LABS: Anion Gap 15 mmol/L (10-20); BUN (Urea Nitrogen) 47 mg/dL (8.4-25.7); Calc. Creatinine Clearance 52 mL/min (70-130); Calcium 8.4 mg/dL (7.8-10.44); Carbon Dioxide 15 mmol/L (23-31); Chloride 112 mmol/L (98-107); Glucose 107 mg/dL (80-115); Potassium 4.5 mmol/L (3.5-5.1); Sodium 137 mmol/L (136-145)
[2021-07-24 06:46] LABS: Phosphorus 2.5 mg/dL (2.3-4.7)
[2021-07-24] MEDS: Mometasone 200 MCG/Formoterol 5 MCG 120 PUFF INHALER INH SCH ×2 (07:31→16:37)
[2021-07-24] MEDS: Ferrous Sulfate 325 MG TAB PO SCH (08:37)
[2021-07-24] MEDS: Sodium Bicarbonate Tab 325 MG TAB PO SCH ×3 (08:38→21:55)
[2021-07-24] MEDS: Mycophenolate ER 180 MG TAB PO SCH ×2 (08:38→16:36)
[2021-07-24] MEDS: Tacrolimus 1 MG CAP PO SCH ×2 (08:38→21:55)
[2021-07-24] MEDS: Magnesium Oxide 250 MG TAB PO SCH (08:38)
[2021-07-24] MEDS: Polyethylene Glycol 3350 17 GM Packet PO SCH ×2 (08:38→21:54)
[2021-07-24] MEDS: Ascorbic Acid 500 mg Chewable Tablet PO SCH (08:38)
[2021-07-24] MEDS: Lantus 1000 UNITS/10 ML VIAL SC SCH (08:39)
[2021-07-24] MEDS: Amlodipine 10 MG TAB PO SCH (08:39)
[2021-07-24] MEDS: Pantoprazole 40 MG VIAL IVP SCH ×2 (08:39→21:56)
[2021-07-24] MEDS: HumaLOG 300 UNITS/3 ML VIAL SC PRN (16:37)
[2021-07-24] MEDS: Atorvastatin Calcium 20 MG TAB PO SCH (21:55)
[2021-07-25 05:10] LABS: #Eosinphils 0.1 thou/uL (0.0-0.7); #Lymphocytes 0.7 thou/uL (1.20-3.40); #Monocytes 0.6 thou/uL (0.11-0.59); #Neutrophils 7.2 thou/uL (1.40-6.50); %Basophils 0.1 % (0.0-1.0); %Lymphocytes 8.4 % (21.0-51.0); %Monocytes 7.2 % (0.0-10.0); %Neutrophils 83.4 % (42.0-75.0); Hemoglobin 12.4 g/dL (14.0-18.0); Mean Corpuscular HGB CONC 33.1 g/dL (32.0-36.0); Mean Corpuscular Hemoglobin 29.6 pg (27.0-31.0); Mean Corpuscular Volume 89.4 fL (78.0-98.0); Mean Platelet Volume 9.3 fL (7.4-10.4); Platelet Count 184 thou/uL (130-400); RBC Distribution Width 12.4 % (11.5-14.5); Red Blood Cell (RBC) Count 4.19 mill/uL (4.70-6.10); White Blood Cell (WBC) Count 8.6 thou/uL (4.8-10.8)
[2021-07-25 05:24] LABS: Anion Gap 13 mmol/L (10-20); BUN (Urea Nitrogen) 37 mg/dL (8.4-25.7); Calc. Creatinine Clearance 52 mL/min (70-130); Calcium 8.5 mg/dL (7.8-10.44); Carbon Dioxide 19 mmol/L (23-31); Chloride 109 mmol/L (98-107); Glucose 134 mg/dL (80-115); Magnesium 1.8 mg/dL (1.6-2.6); Phosphorus 1.7 mg/dL (2.3-4.7); Potassium 4.6 mmol/L (3.5-5.1); Sodium 136 mmol/L (136-145)
[2021-07-25] MEDS: Mycophenolate ER 180 MG TAB PO SCH ×2 (06:16→17:27)
[2021-07-25] MEDS: Mometasone 200 MCG/Formoterol 5 MCG 120 PUFF INHALER INH SCH ×2 (06:16→17:28)
[2021-07-25] MEDS: Lantus 1000 UNITS/10 ML VIAL SC SCH (09:24)
[2021-07-25] MEDS: Polyethylene Glycol 3350 17 GM Packet PO SCH ×2 (09:26→21:05)
[2021-07-25] MEDS: Amlodipine 10 MG TAB PO SCH (09:27)
[2021-07-25] MEDS: Ferrous Sulfate 325 MG TAB PO SCH (09:27)
[2021-07-25] MEDS: Sodium Bicarbonate Tab 325 MG TAB PO SCH ×3 (09:28→21:07)
[2021-07-25] MEDS: Tacrolimus 1 MG CAP PO SCH ×2 (09:28→21:07)
[2021-07-25] MEDS: Ascorbic Acid 500 mg Chewable Tablet PO SCH (09:28)
[2021-07-25] MEDS: Pantoprazole 40 MG VIAL IVP SCH ×2 (09:28→21:07)
[2021-07-25] MEDS: Magnesium Oxide 250 MG TAB PO SCH (11:06)
[2021-07-25] MEDS: PHOS-NAK 1 PKT PACK PO SCH ×3 (11:06→21:07)
[2021-07-25] MEDS: Atorvastatin Calcium 40 MG TAB PO SCH (21:07)
[2021-07-25] MEDS: Acetaminophen 325 MG TAB PO PRN (21:08)
[2021-07-26 06:09] LABS: #Eosinphils 0.2 thou/uL (0.0-0.7); #Lymphocytes 0.6 thou/uL (1.20-3.40); #Monocytes 0.5 thou/uL (0.11-0.59); #Neutrophils 5.3 thou/uL (1.40-6.50); %Basophils 0.2 % (0.0-1.0); %Eosinophils 2.3 % (0.0-10.0); %Lymphocytes 9.2 % (21.0-51.0); %Monocytes 7.7 % (0.0-10.0); %Neutrophils 80.6 % (42.0-75.0); Hemoglobin 11.3 g/dL (14.0-18.0); Mean Corpuscular HGB CONC 31.9 g/dL (32.0-36.0); Mean Corpuscular Hemoglobin 29.3 pg (27.0-31.0); Mean Corpuscular Volume 91.9 fL (78.0-98.0); Platelet Count 208 thou/uL (130-400); RBC Distribution Width 12.5 % (11.5-14.5); Red Blood Cell (RBC) Count 3.86 mill/uL (4.70-6.10); White Blood Cell (WBC) Count 6.6 thou/uL (4.8-10.8)
[2021-07-26 06:11] LABS: Phosphorus 2.4 mg/dL (2.3-4.7)
[2021-07-26 06:12] LABS: Anion Gap 12 mmol/L (10-20); BUN (Urea Nitrogen) 34 mg/dL (8.4-25.7); Calc. Creatinine Clearance 54 mL/min (70-130); Calcium 8.5 mg/dL (7.8-10.44); Carbon Dioxide 22 mmol/L (23-31); Chloride 108 mmol/L (98-107); Glucose 106 mg/dL (80-115); Magnesium 1.7 mg/dL (1.6-2.6); Potassium 4.6 mmol/L (3.5-5.1); Sodium 137 mmol/L (136-145)
[2021-07-26] MEDS: Mycophenolate ER 180 MG TAB PO SCH ×2 (06:22→15:51)
[2021-07-26] MEDS: Mometasone 200 MCG/Formoterol 5 MCG 120 PUFF INHALER INH SCH ×2 (06:22→18:42)
[2021-07-26] MEDS: Ferrous Sulfate 325 MG TAB PO SCH (08:00)
[2021-07-26] MEDS: Amlodipine 10 MG TAB PO SCH (08:00)
[2021-07-26] MEDS: Ascorbic Acid 500 mg Chewable Tablet PO SCH (08:00)
[2021-07-26] MEDS: Lantus 1000 UNITS/10 ML VIAL SC SCH (08:00)
[2021-07-26] MEDS: Folic Acid 1 MG TAB PO SCH (08:00)
[2021-07-26] MEDS: Polyethylene Glycol 3350 17 GM Packet PO SCH ×2 (08:00→20:38)
[2021-07-26] MEDS: Tacrolimus 1 MG CAP PO SCH ×2 (08:01→20:38)
[2021-07-26] MEDS: PHOS-NAK 1 PKT PACK PO SCH ×3 (08:01→20:38)
[2021-07-26] MEDS: Magnesium Oxide 250 MG TAB PO SCH (08:01)
[2021-07-26] MEDS: Pantoprazole 40 MG VIAL IVP SCH ×2 (08:01→20:38)
[2021-07-26] MEDS: Sodium Bicarbonate Tab 325 MG TAB PO SCH ×3 (08:01→20:38)
[2021-07-26 11:07] LABS: Syphilis Antibody Nonreactive (Nonreactive); Syphilis Antibody Index 0.05 S/CO (<1.00 Non-Reactive)
[2021-07-26 12:29] VITALS: BMI 23.2
[2021-07-26] MEDS: Atorvastatin Calcium 40 MG TAB PO SCH (20:37)
[2021-07-27] MEDS: Acetaminophen 325 MG TAB PO PRN (01:42)
[2021-07-27 05:07] LABS: #Eosinphils 0.1 thou/uL (0.0-0.7); #Lymphocytes 0.5 thou/uL (1.20-3.40); #Monocytes 0.5 thou/uL (0.11-0.59); #Neutrophils 3.9 thou/uL (1.40-6.50); %Basophils 0.1 % (0.0-1.0); %Eosinophils 2.5 % (0.0-10.0); %Monocytes 9.9 % (0.0-10.0); %Neutrophils 77.6 % (42.0-75.0); Hemoglobin 10.8 g/dL (14.0-18.0); Mean Corpuscular HGB CONC 32.9 g/dL (32.0-36.0); Mean Corpuscular Volume 91.3 fL (78.0-98.0); Mean Platelet Volume 8.2 fL (7.4-10.4); Platelet Count 198 thou/uL (130-400); RBC Distribution Width 12.5 % (11.5-14.5); Red Blood Cell (RBC) Count 3.58 mill/uL (4.70-6.10)
[2021-07-27 05:21] LABS: INR-International Normal Ratio 1.2; Prothrombin Time 14.9 sec (12.0-14.7)
[2021-07-27 05:22] LABS: PTT 48.1 sec (22.9-36.1)
[2021-07-27 06:16] LABS: Phosphorus 2.6 mg/dL (2.3-4.7)
[2021-07-27 06:30] LABS: Anion Gap 8 mmol/L (10-20); BUN (Urea Nitrogen) 28 mg/dL (8.4-25.7); Calc. Creatinine Clearance 58 mL/min (70-130); Calcium 8.5 mg/dL (7.8-10.44); Carbon Dioxide 26 mmol/L (23-31); Chloride 110 mmol/L (98-107); Glucose 78 mg/dL (80-115); Magnesium 1.6 mg/dL (1.6-2.6); Potassium 4.6 mmol/L (3.5-5.1); Sodium 139 mmol/L (136-145)
[2021-07-27 06:33] LABS: HIV (1/2) Antibody/Antigen Non-Reactive (NonReactive)
[2021-07-27] MEDS: Mometasone 200 MCG/Formoterol 5 MCG 120 PUFF INHALER INH SCH (06:57)
[2021-07-27] MEDS: Ascorbic Acid 500 mg Chewable Tablet PO SCH (08:15)
[2021-07-27] MEDS: Polyethylene Glycol 3350 17 GM Packet PO SCH (08:15)
[2021-07-27] MEDS: Tacrolimus 1 MG CAP PO SCH (08:15)
[2021-07-27] MEDS: Sodium Bicarbonate Tab 325 MG TAB PO SCH ×2 (08:16→15:13)
[2021-07-27] MEDS: PHOS-NAK 1 PKT PACK PO SCH (08:16)
[2021-07-27] MEDS: Amlodipine 10 MG TAB PO SCH (08:16)
[2021-07-27] MEDS: Folic Acid 1 MG TAB PO SCH (08:16)
[2021-07-27] MEDS: Ferrous Sulfate 325 MG TAB PO SCH (08:16)
[2021-07-27] MEDS: Magnesium Oxide 250 MG TAB PO SCH (08:37)
[2021-07-27] MEDS: Mycophenolate ER 180 MG TAB PO SCH ×2 (08:37→15:13)
[2021-07-27] MEDS ORDERED: Aspirin 81 mg Enteric Coated Tablet PO SCH (09:00)
[2021-07-27] MEDS ORDERED: Lansoprazole 3 MG/ML ORAL SUSPENSION PO SCH (09:00)
[2021-07-27] MEDS ORDERED: Lantus 1000 UNITS/10 ML VIAL SC SCH (09:00)
[2021-07-27 12:54] VITALS: BP 125/61; TEMP 97.9
[2021-07-27] MEDS: HumaLOG 300 UNITS/3 ML VIAL SC PRN (15:18)
== END 2021-07-27 15:50 | disposition home or self-care (01) | DRG 177 ==
LOC: ERS 10:53 → ERHOLD 07-12 08:58 → 2SW 07-12 16:33 → IMCU/EMU 07-15 12:15 → 2SW 07-18 16:12
PROVIDERS: ADMIT Internal Medicine; ATTEND Family Medicine
PROC: 8E0ZXY6 Isolation (ICD-10-PCS; principal; 2021-07-12)
PROC: XW0DXM6 Introduction of Baricitinib into Mouth and Pharynx, External Approach, New Technology Group 6 (ICD-10-PCS; 2021-07-15)
PROC: 0DJD8ZZ Inspection of Lower Intestinal Tract, Via Natural or Artificial Opening Endoscopic (ICD-10-PCS; 2021-07-23)
DX: U07.1 COVID-19 (principal); J12.82 Pneumonia due to coronavirus disease 2019; J96.01 Acute respiratory failure with hypoxia; G82.50 Quadriplegia, unspecified; J18.9 Pneumonia, unspecified organism; G93.41 Metabolic encephalopathy; I63.89 Other cerebral infarction; Z94.4 Liver transplant status; N17.9 Acute kidney failure, unspecified; E87.2 Acidosis; E87.1 Hypo-osmolality and hyponatremia; K62.6 Ulcer of anus and rectum; R19.7 Diarrhea, unspecified; N18.30 Chronic kidney disease, stage 3 unspecified; E83.42 Hypomagnesemia; E87.70 Fluid overload, unspecified; E11.22 Type 2 diabetes mellitus with diabetic chronic kidney disease; E11.65 Type 2 diabetes mellitus with hyperglycemia; I12.9 Hypertensive chronic kidney disease with stage 1 through stage 4 chronic kidney disease, or unspecified chronic kidney disease; R31.0 Gross hematuria; E87.5 Hyperkalemia; N20.0 Calculus of kidney; R00.1 Bradycardia, unspecified; K56.41 Fecal impaction; E83.39 Other disorders of phosphorus metabolism; Z88.6 Allergy status to analgesic agent; Z88.8 Allergy status to other drugs, medicaments and biological substances; G93.89 Other specified disorders of brain
CPT/HCPCS: 36415; 36416; 36600; 70450; 70551; 71045; 71250; 74176; 76770; 76775; 80048; 80053; 80069; 80076; 80197; 81001; 82274; 82553; 82570; 82607; 82746; 82805; 83036; 83605; 83735; 83880; 84100; 84156; 84443; 84484; 85025; 85027; 85379; 85610; 85652; 85730; 86140; 86780; 86850; 86900; 86901; 87040; 87086; 87389; 93005; 93010; 93306; 93880; 95712; 95819; 95957; C9113; J0360; J0692; J1650; J1815; J1940; J2920; J3475; J3490; J7042; J7070; J7507; J7512; J7518; U0002; U0003; U0005